=== PATIENT | female | born 1950 | race Caucasian/White ===

== ENCOUNTER 2020-10-16 01:37 | Inpatient (IN) | payer OTHER ==
[~2020-10-16] VITALS: Ht 170.2 cm; Wt 74.1 kg
[2020-10-16] VITALS (9 sets, daily range): BP systolic 125–162; BP diastolic 65–85
--- NOTE | ~2020-10-16 | EMS ---
[address] [address] EMS Patient Care Report Name: JON XIE Room #: PRE M.R.#: [id number] Admission: Attend Phys: Discharge: Date of : 50 Report #: [id number] THIS REPORT FOR: //name// Report Transmitted: 10/16/2020 01:27 EMS Care Summary [place], [place]/[facility] Incident [id number] @ 10/16/2020 00:43 Incident Location [address] [place] [address] Patient JON MONTERROSO Female, 70 Years 1950 Patient Address [address] [place] [address] Patient History None Reported, Patient Allergies Sulfa,Seasonal allergy, Patient Medications Flonase, Claritin, Chief Complaint left hip pain Disposition Transported No Lights/[place] Dispatch Reason Falls Transported To [facility] Narrative M36 dispatched on a fall. M36 arrived to find PT seated on floor in restroom of home. PT stated left hip pain as chief complaint. PT seated with left leg extended and right leg bent. Left leg found to be rotated outward and shortened when compared to right leg. PT stated she "lost her balance" and fell in [address] [address] EMS Patient Care Report Name: JON XIE Room #: PRE Nidia.#: [id number] Admission: Attend Phys: Discharge: Date of : 50 Report #: [id number] kitchen around 2300 on 10/15/20. PT stated she hit her head on the stove. PT denied loss of consciousness. PT c-spine cleared. PT denied head, neck and back pain. PT being on blood thinners. IV access obtained by Letterer Stalker. PT treated per pain protocol. Lifting assistance requested from dispatch. PT moved by Fire and EMS to kecia final finisher forging dies. PT carried on kecia final finisher forging dies to stretcher outside of home. PT stated she fell then "could not wake my sleeping until he called you." PT secured to stretcher with seatbelts. PT vitals including 3- lead monitored en route. PT report given. PT moved to hospital bed via four person sheet lift. PT care and belongings transferred to ER staff at [facility] without incident. M36 placed back in service. Initial Vitals @01:16P: 88,R: 18,BP: 148/90,Pain: 8/10,GCS: 15,SpO2: 94,Revised Trauma: 12,[place] Suspected: false @01:30P: 90,R: 12,BP: 150/82,Pain: 0/10,GCS: 15,SpO2: 92,Revised Trauma: 12, @01:20P: 90,R: 14,BP: 152/98,Pain: 3/10,GCS: 15,CO: 2,SpO2: 94,Revised Trauma: 12, @01:01P: 90,R: 18,Pain: 9/10,GCS: 15,SpO2: 96,Revised Trauma: 12, Assessments @01:00MENTAL:Person Oriented,Time Oriented,Place Oriented,Event Oriented,SKIN:HEENT:LUNG SOUNDS:ABDOMEN:PELVIS//GI:EXTREMITIES:Left Leg: Other,PULSE:NEURO:@01:30MENTAL:Person Oriented,Event Oriented,Place Oriented,Time Oriented,SKIN:HEENT:LUNG SOUNDS:ABDOMEN:PELVIS//GI:EXTREMITIES:PULSE:NEURO: Impression Injury of Hip Procedures @01:00ALS AssessmentResponse: UnchangedSucceeded@01:07Saline Lock 10cc (20 ga) Site: Forearm-LeftResponse: UnchangedSucceeded@01:09Fentanyl - 50 Micrograms (mcg) - Intravenous (IV)Response: Improved@01:17Fentanyl - 50 Micrograms (mcg) - Intravenous (IV)Response: Improved@01:01C-Spine ClearanceResponse: Unchanged@01:123-Lead ECGResponse: UnchangedSucceeded Timeline 00:41,Call Received 00:41,Dispatch Notified 00:43,Dispatched 00:45,En Route 00:55,On Scene 00:56,At Patient 01:00,ALS Assessment,Response: UnchangedSucceeded, 01:01,BP: 90/ M,PULSE: 90,RR: 18 R,SPO2: 96 Ox,ETCO2: ,BG: ,PAIN: 9,GCS: 15, [address] [address] EMS Patient Care Report Name: JON XIE Room #: PRE M.R.#: [id number] Admission: Attend Phys: Discharge: Date of : 50 Report #: [id number] 01:01,C-Spine Clearance,Response: Unchanged 01:07,Saline Lock 10cc 20 ga Site: Forearm-Left,Response: UnchangedSucceeded, 01:09,Fentanyl - 50 Micrograms (mcg) - Intravenous (IV),Response: Improved 01:12,3-Lead ECG,Response: UnchangedSucceeded, 01:16,BP: 148/90 M,PULSE: 88,RR: 18 R,SPO2: 94 Ox,ETCO2: ,BG: ,PAIN: 8,GCS: 15, 01:17,Fentanyl - 50 Micrograms (mcg) - Intravenous (IV),Response: Improved 01:20,BP: 152/98 M,PULSE: 90,RR: 14 R,SPO2: 94 Ox,ETCO2: ,BG: ,PAIN: 3,GCS: 15, 01:23,Depart Scene 01:30,BP: 150/82 M,PULSE: 90,RR: 12 R,SPO2: 92 Ox,ETCO2: ,BG: ,PAIN: 0,GCS: 15, 01:30,At Destination 01:48,Call Closed Disclaimer v1.1 Copyright 2020 [employer] This EMS Care Summary contains data elements from the applicable legal record (which may be displayed differently). It is designed to provide pertinent information for the following purposes: continuity of care, clinical quality, and state data reporting. The complete legal record is available to ED staff and administrators of the receiving hospital in ES's Patient Tracker. All data is provided "as is."
[2020-10-16 02:09] LABS: ABSOLUTE NEUTROPHILS 7.7 thou/uL (1.4-8.2); BASOPHILS 0.4 % (0.0-2.0); EOSINOPHILS 0.4 % (0.0-3.0); HEMATOCRIT 41.7 % (37.0-47.0); LYMPHOCYTES 13.6 % (24.0-44.0); MCH 32.3 pg (26.0-34.0); MCHC 33.4 g/dL (28.0-37.0); MCV 96.5 fL (80.0-100.0); MONOCYTES 7.2 % (1.0-8.0); PLATELET COUNT 312 thou/uL (150-400); POLYS 78.4 % (36.0-66.0); RBC 4.32 mil/uL (4.20-5.00); RDW 13.2 % (10.5-14.5); WBC 9.9 thou/uL (4.0-11.0)
[2020-10-16 02:19] LABS: ANION GAP 8 mmol/L (7-16); BUN 11 mg/dL (7-18); CALCIUM 9.1 mg/dL (8.5-10.1); CHLORIDE 96 mmol/L (98-107); CO2 26 mmol/L (21-32); CREATININE 0.4 mg/dL (0.6-1.0); GLUCOSE 99 mg/dL (74-106); POTASSIUM 4.4 mmol/L (3.5-5.1); SODIUM 130 mmol/L (136-145)
[2020-10-16 02:21] LABS: URINE BILIRUBIN NEGATIVE (Negative); URINE BLOOD NEGATIVE (Negative); URINE CLARITY CLEAR; URINE COLOR YELLOW; URINE GLUCOSE-RANDOM* NEGATIVE (Negative); URINE KETONES NEGATIVE (Negative); URINE LEUKOCYTES-REFLEX NEGATIVE (Negative); URINE NITRITE-REFLEX POSITIVE (Negative); URINE PROTEIN (DIPSTICK) NEGATIVE (Negative); URINE SPECIFIC GRAVITY <= 1.005 (1.005-1.035); URINE UROBILINOGEN 0.2 E.U./dl (0.2-1.0)
[2020-10-16 02:28] LABS: BACTERIA-REFLEX >30 Many /HPF (None Seen); CASTS None Seen /LPF (None Seen); CRYSTALS None Seen /LPF (None Seen); MUCUS 0-3 Light strn/LPF (None Seen); SQUAMOUS 0-3 Few /LPF (0-3); URINE RBC 1-2 Rare /HPF (NONE SEEN); URINE WBC-REFLEX 6-15 Few /HPF (0-5)
[2020-10-16 02:30] LABS: ALBUMIN 3.7 g/dL (3.4-5.0); SGOT 31 U/L (15-37); SGPT 26 U/L (30-65); TOTAL BILIRUBIN 0.5 mg/dL (0.2-1.0); TOTAL PROTEIN 7.4 g/dL (6.4-8.2); TROPONIN-I <0.06 ng/mL (<0.06)
[2020-10-16] MEDS ORDERED: FLUTICASONE PRO16 GM NASAL (06:01)
[2020-10-16] MEDS ORDERED: LORATADINE-D T1 EAC1 PO (06:05)
--- NOTE | 2020-10-16 06:32 | NUR ---
PT ARRIVED FROM ER VIA CART. ADMISSION, CAREPLAN, MED RECONCILIATION AND INTERVENTIONS ALL COMPLETED. CT OF HIP SHOWS LEFT HIP FRACTURE. ORTHO WAS CONTACTED WHILE PT IN ER. IV FLUIDS PER POC. PT HAS BEEN NPO WITH PAIN MANAGEMENT FROM IV MORPHINE Q2. PT STATES THAT IT WORKS!
--- NOTE | 2020-10-16 09:19 | NUR ---
CM S/W PT WHO INDICATED SHE LIVES HOME WITH SPOUSE. HAS ONE "STOUP" TO ENTER HOME AND 13 STAIRS WITH HANDRAILS ON BOTH SIDES TO GET TO BEDROOM. PT HAS NO HX WITH HH OR SNF. PT WILL MORE THAN LIKELY DC WITH HH. PT IS USUALLY ACTIVE AND INDEPENDENT WITH ADLS. PT HAS NO DMES. PCP IS RHETT FITCH MD. PT WILL LIKELY HAVE SURGERY TODAY.
--- NOTE | 2020-10-16 18:27 | NUR ---
PATIENT CONTINUED TO BE NPO THIS SHIFT THEN WAS TAKEN FOR PROCEDURE AT APPROXIMATELY 1600 THIS SHIFT. VSS. PRN PAIN MEDICATION GIVEN THROUGHOUT SHIFT PER ORDERS PRN. FAMILY AND PATIENT UPDATED THROUGHOUT SHIFT.
[2020-10-17 00:07] VITALS: BP 152/70
[2020-10-17 04:41] VITALS: BP 108/87
--- NOTE | 2020-10-17 05:06 | NUR ---
Patient making slow progress towards outcome goals. Vital signs and rhtyhm stable. IVFluids infusing, good pain control with Hydrocodone. Left hip dressing dry and intact. Tolerating oral intake, good urine output.
[2020-10-17 05:19] LABS: HEMATOCRIT 34.5 % (37.0-47.0); MCH 32.8 pg (26.0-34.0); MCHC 33.8 g/dL (28.0-37.0); MCV 97.2 fL (80.0-100.0); RBC 3.55 mil/uL (4.20-5.00); RDW 13.1 % (10.5-14.5); WBC 9.4 thou/uL (4.0-11.0)
[2020-10-17 05:52] LABS: HEMOGLOBIN 11.6 gm/dL (12.0-15.0)
[2020-10-17 06:07] LABS: CALCIUM 8.1 mg/dL (8.5-10.1); CREATININE 0.5 mg/dL (0.6-1.0); POTASSIUM 4.5 mmol/L (3.5-5.1)
[2020-10-17 07:27] VITALS: BP 143/55
--- NOTE | 2020-10-17 09:29 | HC ---
[facility] [place] [address] CONSULTATION Name: JON XIE Room #: 350- ADM IN M.R.#: [id number] Admission: 10/16/20 Attend Phys: Jake Bazan, Discharge: Date of : 50 Report #: [id number] THIS REPORT FOR: cc: Kevin Abrams MD, Michael D. MD Clymer, David J. MD ~ DOC #: [id number] Christian Hair MD DATE OF SERVICE: 10/16/2020 CHIEF COMPLAINT: Left proximal femur fracture. HISTORY OF PRESENT ILLNESS: This generally fit, healthy, active, and independent 70-year-old female stumbled and fell last evening at home. She injured the left hip. She was seen at [facility] where x-rays confirm a mildly comminuted displaced and angulated intertrochanteric fracture in the left proximal femur. She denies any other injuries. On my evaluation, she is alert and oriented and is reasonably comfortable when lying still in bed. She does complain of pain with any attempted movement about the left hip. She denies any discomfort of the head, neck, or upper extremities. OBJECTIVE: She seems to be alert and stable. She has good movement of the neck and low back without much discomfort. She has good movement of both upper extremities at the shoulder, elbow and wrist without discomfort. The right lower extremity reveals satisfactory alignment and range of motion of the hip and knee without joint discomfort. The left lower extremity is uncomfortable and appears to be slightly shortened and mildly rotated consistent with a proximal femur fracture. She is uncomfortable with any attempted movement about the hip, also consistent with a proximal femur fracture. Neurologic status appears to be normal. X-rays of the pelvis and left hip reveal a mildly comminuted displaced and angulated intertrochanteric fracture, left proximal femur. No other significant abnormalities are noted. IMPRESSION AND PLAN: Left proximal femur fracture. I have discussed this with the patient reviewing treatment options. I think surgical repair using an antegrade femoral nail would be most appropriate. She understands and wishes to proceed, pending medical clearance and OR availability, we may be able to proceed with her surgery either later today or tomorrow morning. Christian Hair MD [facility] [address] [address] CONSULTATION Name: JON XIE Room #: 350-P [facility] IN ..#: [id number] Admission: 10/16/20 Attend Phys: Jake Bazan, Discharge: Date of : 50 Report #: [id number] <ELECTRONICALLY SIGNED> By: Christian Hair MD 10/17/20 0929 0908 49 Christian Hair MD /nt
--- NOTE | 2020-10-17 09:29 | O ---
[facility] [place] [address] OPERATIVE REPORT Name: JON XIE Room #: 350-P ADM IN M.R.#: [id number] Admission: 10/16/20 Attend Phys: Jake Bazan, Discharge: Date of : 50 Report #: [id number] THIS REPORT FOR: cc: Kevin Abrams MD, Michael D. MD Clymer, David J. MD ~ DOC #: [id number] Christian Hair MD DATE OF SERVICE: 10/16/2020 PREOPERATIVE DIAGNOSIS: Fracture, left proximal femur, intertrochanteric. POSTOPERATIVE DIAGNOSIS: Fracture, left proximal femur, intertrochanteric. PROCEDURE: Open reduction internal fixation, left proximal femur fracture using antegrade TFN nail. SURGEON: Christian Hair MD INDICATIONS: This 70-year-old female fell at home injuring the left hip. X-rays confirm a comminuted intertrochanteric fracture of the left proximal femur. We discussed treatment options and elected to go ahead with surgical repair. DESCRIPTION OF PROCEDURE: The patient was taken to the operating room where she was placed under general anesthesia. Prophylactic antibiotics had already been started. The patient was positioned on the fracture table with gentle longitudinal traction, which resulted in a near anatomic alignment of the fracture. This was visualized with C-arm. The lateral aspect of the left hip and thigh were meticulously prepped and draped. Skin incision was made just proximal to the greater trochanter and a guidewire passed through the tip of the trochanter into the canal. The fracture was found to be mildly comminuted and extended all the way to the tip of the greater trochanter, which made reaming and implant placement somewhat more difficult. A size 11 diameter x 175 length [employer]ynthes TFN nail was inserted into appropriate position. A guidewire was passed through the lateral femoral cortex into the low posterior femoral neck and head. It was positioned with C-arm guidance. A 100 mm helical blade was then inserted extending this up to about 10-15 mm below the subchondral bone at the femoral head region. It seated nicely and appeared to be secure. The proximal locking screw was tightened down. The fracture was gently compacted with the device. The distal fixation screw was then inserted using the outrigger guide. This also resulted in good fixation. C-arm views including AP and lateral views demonstrated good position of the components and satisfactory alignment of the fracture. The wounds were gently irrigated and then closed using #1 Vicryl in the fascia, 2-0 Monocryl in the subcutaneous tissues and ariane in the skin. Sterile dressing was applied. The patient was awakened [place] [address] OPERATIVE REPORT Name: JON XIE Room #: 350-P [facility] IN M.R.#: [id number] Admission: 10/16/20 Attend Phys: Jake Bazan, Discharge: Date of : 50 Report #: [id number] room in satisfactory condition. Christian Hair MD [facility] <ELECTRONICALLY SIGNED> By: Christian Hair MD 10/17/20 0929 1715 [id number] Christian Hair MD /nt
--- NOTE | 2020-10-17 12:12 | NUR ---
SW reviewed chart and spoke with nursing and attending physician. Pt is POD #1. Therapy evaluated pt this morning and recommend post-acute care. 5N consult ordered. MARY met with pt and family at bedside to discuss discharge plan. Pt is aware and in agreement with plan for post-acute care upon discharge. MARY explained admission criteria for 5N v. SNF and need for insurance authorization. Pt verbalized understanding. Awaiting input from 5N at this time. MARY provided pt with list of in-network SNFs for review. MARY is following to assist as needed with discharge planning.
[2020-10-17 14:48] VITALS: BP 109/45
[2020-10-17 20:05] VITALS: BP 110/45
[2020-10-18 04:30] VITALS: BP 110/61
[2020-10-18 04:32] LABS: HEMATOCRIT 27.9 % (37.0-47.0); MCH 33.2 pg (26.0-34.0); MCV 97.8 fL (80.0-100.0); RBC 2.86 mil/uL (4.20-5.00); RDW 13.3 % (10.5-14.5)
[2020-10-18 04:36] LABS: HEMOGLOBIN 9.5 gm/dL (12.0-15.0)
[2020-10-18 04:37] LABS: CALCIUM 8.2 mg/dL (8.5-10.1); CREATININE 0.4 mg/dL (0.6-1.0); POTASSIUM 4.5 mmol/L (3.5-5.1)
--- NOTE | 2020-10-18 06:01 | NUR ---
PT MAKING SLOW PROGRESS TOWARDS GOALS. PT REPORTING PAIN AT GOAL LEVEL UPON INTIAL ASSESSMENT (06/18). DENIED NEED FOR PAIN MEDICATION OVERNIGHT UNTIL THIS MORNING AFTER SHIFTING HER SELF IN BED. DISCUSSED HIP PRECAUTIONS WITH PT. SHE VOICED UNDERSTANDING. REFUSED TO WEAR SCD'S OVERNIGHT DESPITE EDUCATION BEING GIVEN TO ITS IMPORTANCE.
[2020-10-18 07:16] VITALS: BP 121/45
[2020-10-18 09:07] LABS: MAGNESIUM 1.6 mg/dL (1.8-2.4); PHOSPHORUS 2.4 mg/dL (2.6-4.7)
--- NOTE | 2020-10-18 14:55 | NUR ---
PT AND SPOUSE CHOSE THESE THREE FACILITIES FOR SNF...[facility]...[facility]...AND [facility] [place] [address]...
[2020-10-18 15:18] VITALS: BP 135/53
[2020-10-18 16:25] LABS: HEMATOCRIT 27.7 % (37.0-47.0); HEMOGLOBIN 9.6 gm/dL (12.0-15.0)
--- NOTE | 2020-10-18 17:47 | NUR ---
VAT CONSULTED FOR PIV, BUT PT RECEIVING IV ROCEPHIN AND TYPE AND SCREEN SENT. RN REPORTED PT WILL BE HERE TILL AT LEAST TUESDAY. LEFT UPPER BASILIC ML PLACED, TRIMMED 15CM. FLUSHES BRISKLY WITH BLOOD RETURN. PT TOLERATED WELL. RELEASED LINE FOR USE, PER HOSPITAL VASCULAR ACCESS POLICY.
[2020-10-18 19:10] VITALS: BP 126/60
[2020-10-18 19:21] VITALS: BP 138/84
[2020-10-18 19:35] VITALS: BP 126/60
[2020-10-19 04:05] LABS: ABSOLUTE NEUTROPHILS 6.8 thou/uL (1.4-8.2); BASOPHILS 0.5 % (0.0-2.0); EOSINOPHILS 1.7 % (0.0-3.0); HEMATOCRIT 26.5 % (37.0-47.0); HEMOGLOBIN 9.2 gm/dL (12.0-15.0); LYMPHOCYTES 14.9 % (24.0-44.0); MCH 33.7 pg (26.0-34.0); MCHC 34.5 g/dL (28.0-37.0); MCV 97.6 fL (80.0-100.0); MONOCYTES 10.7 % (1.0-8.0); PLATELET COUNT 228 thou/uL (150-400); POLYS 72.2 % (36.0-66.0); RBC 2.72 mil/uL (4.20-5.00); RDW 13.1 % (10.5-14.5); WBC 9.5 thou/uL (4.0-11.0)
[2020-10-19 04:09] LABS: CALCIUM 8.3 mg/dL (8.5-10.1); CREATININE 0.4 mg/dL (0.6-1.0); MAGNESIUM 2.2 mg/dL (1.8-2.4); PHOSPHORUS 2.8 mg/dL (2.5-4.9); POTASSIUM 3.8 mmol/L (3.5-5.1)
[2020-10-19 04:15] VITALS: BP 120/62
--- NOTE | 2020-10-19 06:38 | NUR ---
Pt. stated she slept well during the night but woke up very stiff. Denied need for pain med at HS then requested one this am. She has been repositioned for comfort. SPORTS ANCHOR notified of low magnesium and order received. Magnesium 2 gm IV given to pt.No change in neuro status. She has been appropriate and a little forgetful but easily reoriented. Left hip dressing dry and intact. Hip precautions maintained. Making some progress towards care plan goals.
[2020-10-19 07:10] VITALS: BP 127/71
--- NOTE | 2020-10-19 11:01 | EKG ---
[address] [address] ELECTROCARDIOGRAM REPORT Name: JON XIE Room #: 350-P ADM IN M.R.#: [id number] Admission: 10/16/20 Attend Phys: Jake Bazan, Discharge: Date of : 50 Report #: [id number] [facility] Test Date: 2020-10-18 Test Time: 14:30:20 Pat Name: JON XIE Department: Room: 350 P Gender: F Facility Specialist: JEAN PAUL : 1950 Requested By: Shira Isaacs Order Number: [id number] MD: Simone Fink Measurements Intervals [place] Rate: 90 P: 46 [place]: 150 QRS: 51 QRSD: 81 T: 44 QT: 350 QTc: 429 Interpretive Statements Sinus rhythm No previous ECG available for comparison Electronically Signed On 10-19-2020 11:01:04 CDT by Simone Fink [email or web address] <ELECTRONICALLY SIGNED> By: Simone Fink MD 10/19/20 1101 1430 1430 Simone Fink MD /EPI
[2020-10-19 15:08] VITALS: BP 110/68
[2020-10-19 19:12] VITALS: BP 122/57
[2020-10-19 20:05] VITALS: BP 122/57
[2020-10-20 03:00] VITALS: BP 117/62
[2020-10-20 03:05] VITALS: BP 117/62
--- NOTE | 2020-10-20 03:42 | NUR ---
Pt. slept fair during the night then woke up uncomfortable around 0100. She has been repositioned for comfort. Pain med given with good relief. Neuro status improved , no confusion and has been appropriate. Left hip dressing dry and intact. Making some progress towards care plan goals.
[2020-10-20 07:27] VITALS: BP 148/62
--- NOTE | 2020-10-20 09:33 | NUR ---
SW reviewed chart and spoke with nursing. Pt is POD# 4. Left hip surgery. Pt is progressing towards goals for discharge. Pt is on IV abx. SW met with pt at bedside to discuss discharge plan. Pt states that she would like a referral to be sent to [facility] for review. Her alternate SNF options are: [facility] and [facility]. SW explained referral process and need for insurance authorization. Pt verbalized understanding. SW faxed referral to [facility] and left message for military education coordinator. SW is following to assist as needed with discharge planning.
[2020-10-20 14:48] VITALS: BP 129/59
[2020-10-20 19:59] VITALS: BP 139/73
--- NOTE | 2020-10-20 22:19 | NUR ---
PT RESTING IN BED. PT C/O HEADACHE AND PRN PROVIDED. PT REPORTED FEELING LIKE SHE NEEDS TO HAVE BM, BUT DECLINED MIRALX STATING IT CAUSES INCREASE IN GAS. L HIP DRESSING DRY AND INTACT. PT VERBALIZED UNDERSTANDING TO CALL FOR ASSISTANCE AND TTWB STATUS. PT HOPES FOR DC TO SNF TOMORROW.
[2020-10-21 02:59] LABS: HEMATOCRIT 26.2 % (37.0-47.0); HEMOGLOBIN 9.1 gm/dL (12.0-15.0); MCH 33.6 pg (26.0-34.0); MCHC 34.6 g/dL (28.0-37.0); MCV 97.2 fL (80.0-100.0); RBC 2.7 mil/uL (4.20-5.00); WBC 7.8 thou/uL (4.0-11.0)
[2020-10-21 03:43] LABS: CALCIUM 8.3 mg/dL (8.5-10.1); CREATININE 0.4 mg/dL (0.6-1.0); POTASSIUM 3.8 mmol/L (3.5-5.1)
[2020-10-21 04:41] VITALS: BP 137/73
[2020-10-21 07:07] VITALS: BP 142/60
--- NOTE | 2020-10-21 08:33 | NUR ---
MARY reviewed chart. MARY faxed clinical/therapy info to [facility] for review and to assist with SNF authorization process. Plan is for pt to discharge to [facility] pending insurance authorization. Pt is medically stable for discharge today. MARY is following to assist as needed with discharge planning.
[2020-10-21] MEDS ORDERED: NORCO5 PO (11:52)
[2020-10-21] MEDS ORDERED: VITAMIN D310 MC1 PO (13:02)
[2020-10-21] MEDS ORDERED: XARELTO10 MG PO (13:02)
== END 2020-10-21 14:34 | DRG 481 ==
LOC: ER 01:37 → EROBS 04:26 → 3W 04:26 → ER 04:58 → 3W 04:58
PROVIDERS: Emergency Medicine; Hospitalist; Internal Medicine; ADMIT Surgery; ATTEND Surgery
PROC: 0QS704Z Reposition Left Upper Femur with Internal Fixation Device, Open Approach (ICD-10-PCS; principal; 2020-10-16)
PROC: 05HC33Z Insertion of Infusion Device into Left Basilic Vein, Percutaneous Approach (ICD-10-PCS; 2020-10-18)
DX: S72.142A Displaced intertrochanteric fracture of left femur, initial encounter for closed fracture (principal); N39.0 Urinary tract infection, site not specified; E87.1 Hypo-osmolality and hyponatremia; D62 Acute posthemorrhagic anemia; R31.9 Hematuria, unspecified; J30.2 Other seasonal allergic rhinitis; S09.90XA Unspecified injury of head, initial encounter; R73.9 Hyperglycemia, unspecified; B96.20 Unspecified Escherichia coli [E. coli] as the cause of diseases classified elsewhere; W18.39XA Other fall on same level, initial encounter; Z88.2 Allergy status to sulfonamides; Y93.89 Activity, other specified; Y92.89 Other specified places as the place of occurrence of the external cause; Y99.8 Other external cause status; Z79.899 Other long term (current) drug therapy
CPT/HCPCS: 10879; 27000; 50010; 50101; 50133; 50386; 51412; 51538; 52304; 56525; 57279; 57862; 58263; 62110; 62900; 70005